=== PATIENT | female | born 1955 | race Caucasian/White ===

== ENCOUNTER → 2020-02-14 07:55 | Outpatient (CLI) | payer MEDICARE, BC | END | disposition home or self-care (01) | LOC: D.HCCARDIO 02-12 10:00 | PROVIDERS: ATTEND Internal Medicine Cardiovascular Disease | DX: I20.9 Angina pectoris, unspecified (principal) ==

== ENCOUNTER → 2021-03-24 09:59 | Outpatient (CLI) | payer MEDICARE, BC ==
--- NOTE | ~2021-03-24 | EC ---
PATIENT:MIAH REEVES DATE OF SERVICE: 03/24/21 SEX: F MEDICAL RECORD: [id number] DATE OF : [birth year] LOCATION:D[facility] AGE OF PATIENT: 65 ADMISSION DATE: 03/24/21 REFERRING PHYSICIAN: INTERPRETING PHYSICIAN: TABITHA GONZALEZ MD ECHOCARDIOGRAM REPORT ECHO CHARGES 4 ECHO COMPLETE Date: 03/24/21 CLINICAL DIAGNOSIS: HX OF PALPITATIONS,HTN ASSESS EF AND VALVES ECHOCARDIOGRAPHIC MEASUREMENTS (adult normal given) AC root (d.<3.7cm) 3.8 cm LV Septum d (<1.2 cm> 1.7 cm Valve Excursion 1.7 cm LV Septum (systole) 2.0 cm Left Atria (s.<4.0cm> 5.1 cm LVPW d(<1.2cm) 1.7 cm RV (d.<2.3cm) 4.0 cm LVPW (sytole) 2.0 cm LV diastole(<5.6CM) 5.7 cm MV E-F(>70mm/sec) cm LV systole 3.8 cm LVOT Diameter 2.2 cm MV exc.(>10mm) 1.7 cm Est.ejection fraction (50-75%) % DOPPLER: LVIT cm/sec A 100.0cm/sec E 83.0 cm/sec LA cm/sec RVSP 46 mmHg LVOT 110 cm/sec AOP1/2T m/s Asc. Ao 143 cm/sec RVOT 93 cm/sec RA cm/sec PA 107 cm/sec AV Gradient Peak 8.14 mmHg AV Mean 3.70 mmHg AV Area 3.3 cm MV Gradient Peak 6.49 mmHg MV Mean 1.78 mmHg MV Area cm COMMENTS: Blue Leather Setter: 2 VIVIENNE CAO Ornamental Iron Worker Helper: 3 Dr. Ortiz TAPE# PACS Pericardial Effusion N DATE OF SERVICE: Adequate 2D, color flow imaging, spectral Doppler, and M-Mode. FINDINGS: LVH is present. LV internal dimensions are normal. Wall motion is normal. EF is greater than or equal to 55%. Aortic valve is tricuspid. No evidence of stenosis by Doppler interrogation. Left atrium is dilated at 5.1 cm. Mitral valve shows no prolapse. Trace MR. Right side is grossly normal. Mild TR. ECHOCARDIOGRAM REPORT [id number] MIAH REEVES TRANSINT:[id number] Voice Confirmation ID: [id number] DOCUMENT ID: [id number] TABITHA GONZALEZ MD CC: [id number] DICTATION DATE: 03/24/21 111 [employer]MENT SERVICES VICE PRESIDENT: 03/25/21 1430 DEP CLI 03/24/[address] [facility] [address] [place] [id number]
== END | disposition home or self-care (01) ==
LOC: D.HCCECHO 09:59
PROVIDERS: ATTEND Internal Medicine Interventional Cardiology
DX: R00.2 Palpitations (principal)